=== PATIENT | female | born 1945 | race Caucasian/White ===

== ENCOUNTER 2021-09-06 07:19 | Day surgery (SDC) | payer MEDICARE, SELFPAY ==
[2021-09-06] MEDS: Tropicam./Phenyleph. (1/2.5%) 5 ML BTL OS ×3 (08:06→08:21)
[2021-09-06 08:07] VITALS: BP 143/84; PULSE 76; RESP 16; TEMP 36.6; O2SAT 99
--- NOTE | 2021-09-06 08:33 | ANES.PREOP_ITS ---
General Info Date of Service Date Performed: 09/06/21 Height: 5 ft 3 in Weight: 100 kg Body Mass Index (BMI): 39.0 Surgical Procedure: Operation Date: 09/06/21 09:40 Proposed Procedure Side Surgeon p Cataract Extraction with IOL Implant Left Esteban Arroyo MD Meds Allergies and Home Medications Allergies Allergy/AdvReac Type Severity Reaction Status Date / Time amlodipine Allergy Intermediate Nausea Unverified 09/06/21 08:05 atenolol Allergy Intermediate Other (See Unverified 09/06/21 08:05 Comment) Sulfa (Sulfonamide Allergy Intermediate Hives Unverified 09/06/21 08:05 Antibiotics) lisinopril AdvReac Intermediate Cough Unverified 09/06/21 08:05 Home Medication Medication Instructions Recorded Cbd Oil 09/02/21 acetaminophen 650 mg 1,300 mg PO Q8H PRN 09/02/21 tablet,extended release albuterol sulfate 90 mcg/actuation 1 puff inhalation Q4H PRN 09/02/21 aerosol inhaler cholecalciferol (vitamin D3) 50 50 mcg PO DAILY 09/02/21 mcg (2,000 unit) capsule (Vitamin D3) diltiazem HCl 180 mg capsule,24 180 mg PO QAM 09/02/21 hr,extended release hydrochlorothiazide 25 mg tablet 25 mg PO QAM 09/02/21 hydroxychloroquine 200 mg tablet 200 mg PO DAILY 09/02/21 levothyroxine 150 mcg tablet 150 mcg PO QAM 09/02/21 losartan 100 mg tablet 100 mg PO DAILY 09/02/21 mometasone 100 mcg/actuation HFA 1 - 2 puff inhalation DIRECTED 09/02/21 aerosol inhaler (Asmanex HFA) multivitamin 1 tab PO DAILY 09/02/21 omeprazole 20 mg capsule,delayed 20 mg PO BID 09/02/21 release Current Visit Medications: Current Medications Generic Name Dose Route Start Last Admin Trade Name Freq PRN Reason Stop Dose Admin Acetaminophen 1,000 mg 09/06/21 06:00 Acetaminophen 500 Mg Tab PO Q4H PRN PRN Miscellaneous Medication 0 ml 09/06/21 06:00 Prednisolone 1%, Moxifloxacin 0.5%, Nepafenac 0.1% 5ml Btl OS DIRECTED RUKHSANA Miscellaneous Medication 0 ml 09/06/21 06:00 09/06/21 08:21 Tropicam./Phenyleph. (1/2.5%) 5 Ml Btl OS 1 drp DIRECTED RUKHSANA Administration Tetracaine HCl 0 ml 09/06/21 06:00 Tetracaine 0.5% 4 Ml Btl OS DIRECTED RUKHSANA [facility] Medical History Medical History Barretts esophagus Carpal tunnel syndrome, bilateral HTN (hypertension) Hypothyroidism Leukocytosis Migraine Osteoarthritis Sarcoidosis Medical History Comments:: topical THC cream for nerve pain Surgical History Surgical History History of carpal tunnel surgery History of hip replacement History of lung biopsy Tobacco Smoking/Tobacco Use Status: Never Alcohol Alcohol Intake: current Alcohol intake frequency: a few times a month Alcohol type: hard liquor Substance Use Details: topical THC cream for nerve pain Vital Signs and Lab Results Vital Signs Most Recent Vital Signs in EMR: Most Recent Vital Signs Temp Pulse Resp BP Pulse Ox 36.6 C 76 16 143/84 H 99 09/06/21 08:07 09/06/21 08:07 09/06/21 08:07 09/06/21 08:07 09/06/21 08:07 Lab Results Blood Type / Crossmatch: No Data to Display Complete Blood Count: No Data to Display Complete Metabolic Panel: No Data to Display Liver Function Panel: No Data to Display Coagulation Panel: No Data to Display Cardiac Panel: No Data to Display Arterial Blood Gas: No Data to Display Venous Blood Gas: No Data to Display Pancreas Panel: No Data to Display Thyroid Panel: No Data to Display Infectious Disease: No Data to Display Blood Cultures: No Data to Display Toxicology Panel: No Data to Display Anesthesia Assessment and Plan Anesthesia History Personal History: No History of Anesthesia Complications Family History: No Family History of Anesthesia Complications Exercise Tolerance Exercise Tolerance: Metabolic Equivalents<4 Pertinent Negatives Pertinent Negatives: No Symptoms of GERD, No Major Cardiovascular Symptoms or Complaints and No Major Pulmonary Symptoms or Complaints Cardiac & Pulmonary Exam Cardiac Exam: Normal S1/S2 Heart Sounds Pulmonary Exam: Clear Bilateral Breath Sounds and Seasonal Allergies Implantable Cardiac Device Does patient have a Pacemaker or an ICD?: No Airway Exam Known Difficult Airway: No Mallampati Class: 3 Mouth Opening: Normal (> 3cm) Thyromental Distance: Greater than 3 cm Neck Range of Motion: Full ROM Neck Circumference: Normal Teeth Condition: Normal Dentition ASA Classification ASA Score: ASA 2 Emergency Case?: No NPO Status NPO Status: NPO Clears >2 hours, Solids >8 hours Anesthesia Plan Resuscitation Status: Full Code Anesthesia Technique: MAC Anesthesia Airway Planned: Natural Airway Monitors Used: Standard Monitors
[2021-09-06 09:00] VITALS: BMI 39.0
[2021-09-06] MEDS: Tetracaine 0.5% 4 ML BTL OS (09:30)
[2021-09-06] MEDS: Duovisc Viscoelastic System EACH 1 EACH (09:31)
[2021-09-06] MEDS: Balanced Salt Soln.-PLUS 500 ML BAG (09:31)
[2021-09-06] MEDS: Lidocaine 2% Jelly 6 ML SYR (09:34)
[2021-09-06] MEDS: Povidone-Iodine Ophth 30 ML BTL (09:36)
[2021-09-06 09:40] VITALS: BP 137/87; PULSE 66; RESP 16; TEMP 36.6; O2SAT 99
--- NOTE | 2021-09-06 09:40 | W.PM.DSUDISC ---
Discharge Plan Disposition Patient Disposition: HOME Condition: Good Discharge Details Attending Provider: Esteban Arroyo Primary Care Provider: Iris Cage Home Meds and New Rx's Prescriptions: No Action multivitamin Tablet 1 tab PO DAILY diltiazem HCl 180 mg Capsule,Extended Release 24 Hr 180 mg PO QAM acetaminophen 650 mg Tablet Extended Release 1,300 mg PO Q8H PRN levothyroxine 150 mcg Tablet 150 mcg PO QAM omeprazole 20 mg Capsule,Delayed Release(Dr/Ec) 20 mg PO BID hydrochlorothiazide 25 mg Tablet 25 mg PO QAM hydroxychloroquine 200 mg Tablet 200 mg PO DAILY albuterol sulfate 90 mcg/actuation Hfa Aerosol Inhaler 1 puff INHALATION Q4H PRN losartan 100 mg Tablet 100 mg PO DAILY cholecalciferol (vitamin D3) [Vitamin D3] 50 mcg (2,000 unit) Capsule 50 mcg PO DAILY Asmanex HFA 100 mcg/actuation Hfa Aerosol Inhaler 1 - 2 puff INHALATION DIRECTED Cbd Oil Discharge Instructions Stand Alone Forms: Post-op Topical CataractJaci (DSU) Discharge Orders Discharge Orders: Discharge Order (Routine); Ordered 09/06/21 Ordered By: Esteban Arroyo DS: Diagnosis Discharge Diagnosis (1) Cortical cataract of left eye: Status: Resolved (2) Nuclear sclerotic cataract of left eye: Status: Resolved
--- NOTE | 2021-09-06 09:41 | W.PM.OP ---
Date of service: 09/06/21 Time of Service: 09:41 Operative Note Operative Note PRE-OP DIAGNOSIS: Nuclear/cortical cataract, left eye POST-OP DIAGNOSIS: same PROCEDURE: Cataract extraction using phacoemulsification with intraocular lens implant, left eye SURGEON: Esteban Arroyo ANESTHESIA TYPE: Local By Surgeon and MAC Refer to Anesthesia Record PATHOLOGY: none sent COMPLICATIONS: None Patient was transported to: same day Patient's condition: stable Implants: Serge and Serge / [employer] Tecnis [id number] Indications: Progressive decreased vision due to cataract, left eye Procedure Description: CATARACT SURGERY OPERATIVE REPORT PREOPERATIVE DIAGNOSIS: 1. Nuclear/cortical cataract, left eye POSTOPERATIVE DIAGNOSIS: Same OPERATION: 1. Cataract extraction using phacoemulsification with posterior chamber intraocular lens implant, left eye. IOL: IOL Corporate Pilot/Model: Serge & Serge / HANY Tecnis [id number] IOL Power: + 18.0 diopters IOL Serial Number: [id number] Optic Diameter: 6.0 mm Haptic/Overall Diameter: 13.0 mm PHACO INFO: [employer] Systemon Vision System with OZil and Active Fluidics Cumulative Dispersed Energy (CDE): 9.07 seconds SURGEON: Esteban Arroyo MD, ANGELIQUE ANESTHESIA: Monitored A [facility] (MAC), with local sub-tenon's anesthetic infiltration COMPLICATIONS: None SPECIMENS: None INDICATIONS FOR PROCEDURE: The patient is a 76-year-old lady with history of diminished visual acuity in her left eye secondary to the development of nuclear/cortical cataract. The option of cataract surgery was offered to the patient and she felt she was symptomatic enough that she wished to proceed. PROCEDURE: The correct surgical eye was identified and marked as the left eye and the pupil was dilated in the preoperative area using mydriatics and cycloplegics. The dilated pupil size was 7.0 mm. The patient elected to proceed without oral sedation. The patient was brought to the operating room where cardiopulmonary monitoring was instituted and surgical time-out was performed, confirming the correct operative eye and IOL power. Topical anesthesia was administered and ophthalmic povidone-iodine 5% was instilled into the conjunctival fornices. Lidocaine gel was applied to the cornea and the heidi-ocular area was prepped with Betadine 10% solution and draped in the usual sterile fashion for intraocular surgery, including an aperture drape. A Tegaderm transparent film dressing was cut in half and used to cover the lashes and lid margins. Care was taken to sequester the lashes and lid margins under the Tegaderm dressing. A lid speculum was placed between the lids of the operative eye and the Tal LuxOR Revalia operating microscope was maneuvered into position. Walter scissors were then used to make a conjunctival buttonhole approximately 6mm posterior to the limbus in the inferonasal quadrant. Blunt dissection was carried out to expose bare sclera, and a blunt-tipped sub-tenon?s anesthesia cannula was introduced and passed posteriorly along the globe where non-preserved plain lidocaine was injected into posterior sub-Tenon?s space. A sideport knife was used to make a paracentesis port superiorly/superiortemporally. Intraocular phenylephrine/lidocaine was injected int the anterior chamber.. The anterior chamber was filled with viscoelastic. A keratome knife was used to construct a 2-plane near-clear corneal tunnel extending 2.0mm into clear cornea temporally. A flap was raised on the anterior capsule and capsulorhexis forceps were used to complete a continuous curvilinear capsulorhexis of 5.0 mm. Balanced salt solution was then used to perform cortical cleaving hydrodissection and nuclear hydrodelineation until the lens could be freely rotated within the capsular bag. The lens nucleus was then disassembled and removed within the capsular bag and iris plane using phacoemulsification. Residual cortical material was removed using the 45-degree angled silicone I/A tip with 0.3mm port. The posterior capsule was carefully polished to remove as much residual lens epithelial cells as safely possible. The capsular bag was then inflated and the anterior chamber deepened with viscoelastic. The lens implant described above was inserted into the capsular bag using the HANY [place] Injector. A Kuglen hook was used to dial the IOL into position. Residual viscoelastic was then removed first from posterior to the IOL, then from the anterior chamber using the I/A handpiece. The lens implant was noted to center nicely within the capsular bag. The incisions were stromally hydrated, and the anterior chamber was reformed using BSS. Then 0.5cc of moxifloxacin 1.0mg/ml were injected into the capsular bag and anterior chamber. The incisions were checked with a Weck spear and found to be secure. Several drops of ophthalmic povidone-iodine 5% were then applied to the eye followed by two drops of Imprimis combination prednisolone/moxifloxacin/nepafenac solution. The drapes were removed and a clear plastic protective eye shield was placed over the eye. The patient was then returned to Same Day Surgery in stable condition.
--- NOTE | 2021-09-06 09:50 | W.ANESPOSTOP ---
Postoperative Evaluation Date, Time and Location Date Performed: 09/06/21 Time Performed: 09:51 Patient Location: Day Surgery Unit Vital Signs Most Recent Imported Vital Signs: Most Recent Vital Signs Temp Pulse Resp BP Pulse Ox 36.6 C 66 16 137/87 99 09/06/21 09:40 09/06/21 09:40 09/06/21 09:40 09/06/21 09:40 09/06/21 09:40 Pain Score Most Recent Pain Score: Most Recent Pain Score Pain Level 0 09/06/21 09:40 Assessment Mental Status: Awake (Alert & Oriented to Patient Baseline) Airway and Respiratory Function: Patent airway with normal (patient baseline) respiratory exam Cardiovascular Function: Hemodynamically Stable Hydration Status: Adequately Hydrated Nausea & Vomiting: No Nausea or Vomiting Pain: Pt. Denies Any Pain Peripheral Nerve Block: Patient did not receive a nerve block
== END 2021-09-06 10:09 | disposition home or self-care (01) ==
LOC: SUR 07:21
PROVIDERS: PCP Nurse Practitioner Family; Visit Provider Ophthalmology
PROC: (CPT 66984; principal; 2021-09-06 09:30)
DX: H25.12 Age-related nuclear cataract, left eye (principal); I10 Essential (primary) hypertension; E03.9 Hypothyroidism, unspecified; K22.70 Barrett's esophagus without dysplasia
CPT/HCPCS: 66984; V2632

== ENCOUNTER 2021-09-20 06:26 | Day surgery (SDC) | payer MEDICARE, SELFPAY ==
[2021-09-20] MEDS: Tropicam./Phenyleph. (1/2.5%) 5 ML BTL OD ×3 (06:45→07:04)
[2021-09-20 06:56] VITALS: BP 124/81; PULSE 80; RESP 16; TEMP 36.4; O2SAT 97
--- NOTE | 2021-09-20 06:56 | ANES.PREOP_ITS ---
General Info Date of Service Date Performed: 09/20/21 Height: 5 ft 3 in Weight: 100 kg Body Mass Index (BMI): 39.0 Surgical Procedure: Operation Date: 09/20/21 07:40 Proposed Procedure Side Surgeon p Cataract Extraction with IOL Implant Right Esteban Arroyo MD Meds Allergies and Home Medications Allergies Allergy/AdvReac Type Severity Reaction Status Date / Time amlodipine Allergy Intermediate Nausea Unverified 09/20/21 06:48 atenolol Allergy Intermediate Other (See Unverified 09/20/21 06:48 Comment) Sulfa (Sulfonamide Allergy Intermediate Hives Unverified 09/20/21 06:48 Antibiotics) lisinopril AdvReac Intermediate Cough Unverified 09/20/21 06:48 Home Medication Medication Instructions Recorded Cbd Oil 1 applic topical PRN PRN 09/02/21 acetaminophen 650 mg 1,300 mg PO Q8H PRN 09/02/21 tablet,extended release albuterol sulfate 90 mcg/actuation 1 puff inhalation Q4H PRN 09/02/21 aerosol inhaler cholecalciferol (vitamin D3) 50 50 mcg PO DAILY 09/02/21 mcg (2,000 unit) capsule (Vitamin D3) diltiazem HCl 180 mg capsule,24 180 mg PO QAM 09/02/21 hr,extended release hydrochlorothiazide 25 mg tablet 25 mg PO QAM 09/02/21 hydroxychloroquine 200 mg tablet 200 mg PO DAILY 09/02/21 levothyroxine 150 mcg tablet 150 mcg PO QAM 09/02/21 losartan 100 mg tablet 100 mg PO DAILY 09/02/21 mometasone 100 mcg/actuation HFA 1 - 2 puff inhalation DIRECTED 09/02/21 aerosol inhaler (Asmanex HFA) multivitamin 1 tab PO DAILY 09/02/21 omeprazole 20 mg capsule,delayed 20 mg PO BID 09/02/21 release Current Visit Medications: Current Medications Generic Name Dose Route Start Last Admin Trade Name Freq PRN Reason Stop Dose Admin Acetaminophen 1,000 mg 09/20/21 06:00 Acetaminophen 500 Mg Tab PO Q4H PRN PRN Miscellaneous Medication 0 ml 09/20/21 06:00 Prednisolone 1%, Moxifloxacin 0.5%, Nepafenac 0.1% 5ml Btl OD DIRECTED RUKHSANA Miscellaneous Medication 0 ml 09/20/21 06:00 09/20/21 06:54 Tropicam./Phenyleph. (1/2.5%) 5 Ml Btl OD 1 drp DIRECTED RUKHSANA Administration Tetracaine HCl 0 ml 09/20/21 06:00 Tetracaine 0.5% 4 Ml Btl OD DIRECTED RUKHSANA PFSH Active Problems Active Problems: Problem Status Onset Code Cortical cataract of left eye H26.9 Nuclear sclerotic cataract of left eye H25.12 Medical History Medical History (Updated 09/20/21 @ 06:48 by Lety Hinkle) Atrioventricular block, first degree Barretts esophagus Carpal tunnel syndrome, bilateral HTN (hypertension) Hypothyroidism Leukocytosis Lupus Migraine Osteoarthritis Sarcoidosis Medical History Comments:: topical THC cream for nerve pain Surgical History Surgical History History of carpal tunnel surgery History of hip replacement History of lung biopsy Tobacco Smoking/Tobacco Use Status: Never Alcohol Alcohol Intake: current Alcohol intake frequency: a few times a month Alcohol type: hard liquor Substance Use Details: topical THC cream for nerve pain Vital Signs and Lab Results Lab Results Blood Type / Crossmatch: No Data to Display Complete Blood Count: No Data to Display Complete Metabolic Panel: No Data to Display Liver Function Panel: No Data to Display Coagulation Panel: 2 No Data to Display Cardiac Panel: No Data to Display Arterial Blood Gas: No Data to Display Venous Blood Gas: No Data to Display Pancreas Panel: No Data to Display Thyroid Panel: No Data to Display Infectious Disease: No Data to Display Blood Cultures: No Data to Display Toxicology Panel: No Data to Display Anesthesia Assessment and Plan Anesthesia History Personal History: No History of Anesthesia Complications Family History: No Family History of Anesthesia Complications Exercise Tolerance Exercise Tolerance: Metabolic Equivalents<4 Pertinent Negatives Pertinent Negatives: No Symptoms of GERD, No Major Cardiovascular Symptoms or Complaints, No Major Pulmonary Symptoms or Complaints and No History of CVA/TIA Cardiac & Pulmonary Exam Cardiac Exam: Normal S1/S2 Heart Sounds Pulmonary Exam: Clear Bilateral Breath Sounds Implantable Cardiac Device Does patient have a Pacemaker or an ICD?: No Airway Exam Known Difficult Airway: No Mallampati Class: 3 Mouth Opening: Normal (> 3cm) Thyromental Distance: Greater than 3 cm Neck Range of Motion: Full ROM Neck Circumference: Normal Teeth Condition: Normal Dentition ASA Classification ASA Score: ASA 2 Emergency Case?: No NPO Status NPO Status: NPO Clears >2 hours, Solids >8 hours Anesthesia Plan Resuscitation Status: Full Code Anesthesia Technique: MAC Anesthesia Airway Planned: Natural Airway Monitors Used: Standard Monitors
[2021-09-20 06:57] VITALS: BMI 39.0
[2021-09-20] MEDS: Tetracaine 0.5% 4 ML BTL OD (07:23)
[2021-09-20] MEDS: Povidone-Iodine Ophth 30 ML BTL (07:24)
[2021-09-20] MEDS: Lidocaine 2% Jelly 6 ML SYR (07:25)
[2021-09-20] MEDS: Balanced Salt Soln.-PLUS 500 ML BAG (07:30)
[2021-09-20] MEDS: Duovisc Viscoelastic System EACH 1 EACH (07:30)
[2021-09-20 07:52] VITALS: BP 106/80; PULSE 68; RESP 16; TEMP 36.6; O2SAT 96
--- NOTE | 2021-09-20 07:56 | W.PM.DSUDISC ---
Discharge Plan Disposition Patient Disposition: HOME Condition: Good Discharge Details Attending Provider: Esteban Arroyo Primary Care Provider: Iris Cage Home Meds and New Rx's Prescriptions: No Action multivitamin Tablet 1 tab PO DAILY diltiazem HCl 180 mg Capsule,Extended Release 24 Hr 180 mg PO QAM acetaminophen 650 mg Tablet Extended Release 1,300 mg PO Q8H PRN levothyroxine 150 mcg Tablet 150 mcg PO QAM omeprazole 20 mg Capsule,Delayed Release(Dr/Ec) 20 mg PO BID hydrochlorothiazide 25 mg Tablet 25 mg PO QAM hydroxychloroquine 200 mg Tablet 200 mg PO DAILY albuterol sulfate 90 mcg/actuation Hfa Aerosol Inhaler 1 puff INHALATION Q4H PRN losartan 100 mg Tablet 100 mg PO DAILY cholecalciferol (vitamin D3) [Vitamin D3] 50 mcg (2,000 unit) Capsule 50 mcg PO DAILY Asmanex HFA 100 mcg/actuation Hfa Aerosol Inhaler 1 - 2 puff INHALATION DIRECTED Cbd Oil 1 applic topical PRN PRN Discharge Instructions Stand Alone Forms: Post-op Topical Cataract, Jaci Schaffer (DSU) Discharge Orders Discharge Orders: Discharge Order (Routine); Ordered 09/20/21 Ordered By: Esteban Arroyo DS: Diagnosis Discharge Diagnosis (1) Cortical cataract of right eye: Status: Resolved (2) Nuclear sclerotic cataract of right eye: Status: Resolved
--- NOTE | 2021-09-20 07:58 | W.PM.OP ---
Date of service: 09/20/21 Time of Service: 07:58 Operative Note Operative Note DATE OF PROCEDURE: 09/20/21 PRE-OP DIAGNOSIS: Nuclear/cortical cataract, right eye POST-OP DIAGNOSIS: same PROCEDURE: Cataract extraction using phacoemulsification with intraocular lens implant, right eye SURGEON: Esteban Arroyo ANESTHESIA TYPE: Local By Surgeon and MAC Refer to Anesthesia Record ESTIMATED BLOOD LOSS: 0 PATHOLOGY: none sent COMPLICATIONS: None Patient was transported to: same day Patient's condition: stable Implants: Serge & Serge/HANY Tecnis [id number] Indications: Progressive visual loss due to cataract, right eye Procedure Description: CATARACT SURGERY OPERATIVE REPORT PREOPERATIVE DIAGNOSIS: 1. Nuclear/cortical cataract, right eye POSTOPERATIVE DIAGNOSIS: Same OPERATION: 1. Cataract extraction using phacoemulsification with posterior chamber intraocular lens implant, right eye. IOL: IOL [employer] Driving Machine Operator Helper/Model: Serge & Serge / HANY Tecnis [id number] IOL Power: + 17.5 diopters IOL Serial Number: [id number] Optic Diameter: 6.0mm Haptic/Overall Diameter: 13.0mm PHACO INFO: Tal [employer] Vision System with OZil and Active Fluidics Cumulative Dispersed Energy (CDE): 5.70 seconds SURGEON: Esteban Arroyo MD, ANGELIQUE ANESTHESIA: Monitored Anesthesia Care (MAC), with local sub-tenon's anesthetic infiltration COMPLICATIONS: None SPECIMENS: None INDICATIONS FOR PROCEDURE: The patient is a 76-year-old lady with history of diminished visual acuity in both eyes secondary to development of bilateral nuclear/cortical cataract. She has already undergone cataract surgery in her left eye and is doing well postoperatively. She now presents for cataract surgery in the right eye. PROCEDURE: The correct surgical eye was identified and marked as the right eye and the pupil was dilated in the preoperative area using mydriatics and cycloplegics. The dilated pupil size was 8.0 mm. Oral sedation was administered in the form of an Imprimis MKO Melt (midazolam 3mg/ketamine 25mg/ondansetron 2mg). The patient elected to proceed without oral sedation. The patient was brought to the operating room where cardiopulmonary monitoring was instituted and surgical time-out was performed, confirming the correct operative eye and IOL power. Topical anesthesia was administered and ophthalmic povidone-iodine 5% was instilled into the conjunctival fornices. Lidocaine gel was applied to the cornea and the heidi-ocular area was prepped with Betadine 10% solution and draped in the usual sterile fashion for intraocular surgery, including an aperture drape. A Tegaderm transparent film dressing was cut in half and used to cover the lashes and lid margins. Care was taken to sequester the lashes and lid margins under the Tegaderm dressing. A lid speculum was placed between the lids of the operative eye and the Tal Lux[employer] Revalia operating microscope was maneuvered into position. Walter scissors were then used to make a conjunctival buttonhole approximately 6mm posterior to the limbus in the inferonasal quadrant. Blunt dissection was carried out to expose bare sclera, and a blunt-tipped sub-tenon?s anesthesia cannula was introduced and passed posteriorly along the globe where non-preserved plain lidocaine was injected into posterior sub-Tenon?s space. A sideport knife was used to make a paracentesis port inferotemporally. Intraocular phenylephrine/lidocaine was injected into the anterior chamber. The anterior chamber was filled with viscoelastic. A keratome knife was used to construct a 2-plane near-clear corneal tunnel extending 2.0mm into clear cornea superiortemporally. A flap was raised on the anterior capsule and capsulorhexis forceps were used to complete a continuous curvilinear capsulorhexis of 5.0 mm. Balanced salt solution was then used to perform cortical cleaving hydrodissection and nuclear hydrodelineation until the lens could be freely rotated within the capsular bag. The lens nucleus was then disassembled and removed within the capsular bag and iris plane using phacoemulsification. Residual cortical material was removed using the I/A handpiece. The posterior capsule was carefully polished to remove as much residual lens epithelial cells as safely possible. The capsular bag was then inflated and the anterior chamber deepened with viscoelastic. The lens implant described above was inserted into the capsular bag using the HANY [place] Injector. A Kuglen hook was used to dial the IOL into position. Residual viscoelastic was then removed first from posterior to the IOL, then from the anterior chamber using the I/A handpiece. The lens implant was noted to center nicely within the capsular bag. The incisions were stromally hydrated, and the anterior chamber was reformed using BSS. Then 0.5cc of moxifloxacin 1.0mg/ml were injected into the capsular bag and anterior chamber. The incisions were checked with a Weck spear and found to be secure. Several drops of ophthalmic povidone-iodine 5% were then applied to the eye followed by two drops of Imprimis combination prednisolone/moxifloxacin/nepafenac solution. The drapes were removed and a clear plastic protective eye shield was placed over the eye. The patient was then returned to Same Day Surgery in stable condition.
--- NOTE | 2021-09-20 08:11 | W.ANESPOSTOP ---
Postoperative Evaluation Date, Time and Location Date Performed: 09/20/21 Time Performed: 07:52 Patient Location: Day Surgery Unit Vital Signs Most Recent Imported Vital Signs: Most Recent Vital Signs Temp Pulse Resp BP Pulse Ox 36.6 C 68 16 106/80 96 09/20/21 07:52 09/20/21 07:52 09/20/21 07:52 09/20/21 07:52 09/20/21 07:52 Pain Score Most Recent Pain Score: Most Recent Pain Score Pain Level 0 09/20/21 07:52 Assessment Mental Status: Awake (Alert & Oriented to Patient Baseline) Airway and Respiratory Function: Patent airway with normal (patient baseline) respiratory exam Cardiovascular Function: Hemodynamically Stable Hydration Status: Adequately Hydrated Nausea & Vomiting: No Nausea or Vomiting Pain: Pt. Denies Any Pain Peripheral Nerve Block: Other (Local by Dr. Arroyo)
== END 2021-09-20 08:21 | disposition home or self-care (01) ==
LOC: SUR 06:26
PROVIDERS: PCP Nurse Practitioner Family; Visit Provider Ophthalmology
PROC: (CPT 66984; principal; 2021-09-20 07:30)
DX: H25.11 Age-related nuclear cataract, right eye (principal); I10 Essential (primary) hypertension; E03.9 Hypothyroidism, unspecified
CPT/HCPCS: 66984; V2632